=== PATIENT | female | born 1960 | race Caucasian/White ===

== ENCOUNTER 2022-10-31 10:25 | Outpatient (CLI) | payer OTHER, SELFPAY ==
[2022-10-31 14:56] LABS: Chloride* 105 mmol/L (96-114); Sodium* 139 mmol/L (135-149)
[2022-10-31 14:59] LABS: Carbon Dioxide* 29 mmol/L (20-32); Cholesterol* 214 mg/dL (90-199); Creatinine* 0.7 mg/dL (0.5-1.5); Estimated Glomerular Filt Rate 99 ml/min
[2022-10-31 15:00] LABS: Blood Urea Nitrogen* 16 mg/dL (7-30); Calcium* 9.5 mg/dL (8.4-10.6); Glucose* 102 mg/dL (60-115); HDL Cholesterol* 49 mg/dL (>=50); LDL Cholesterol Calculated 134 mg/dL (<100); Triglycerides* 156 mg/dL (40-149)
== END 2022-10-31 10:26 | disposition home or self-care (01) ==
PROVIDERS: PCP Family Medicine; Visit Provider Family Medicine
DX: I10 Essential (primary) hypertension (principal); Z13.0 Encounter for screening for diseases of the blood and blood-forming organs and certain disorders involving the immune mechanism; Z13.6 Encounter for screening for cardiovascular disorders
CPT/HCPCS: 80048; 80061

== ENCOUNTER 2022-12-07 16:52 | Outpatient (CLI) | payer OTHER, SELFPAY | END 2022-12-07 16:53 | disposition home or self-care (01) | LOC: NFLDREF 12-09 00:35 | PROVIDERS: PCP Family Medicine; Referring Provider Family Medicine; Visit Provider Family Medicine | DX: R30.0 Dysuria (principal); N39.0 Urinary tract infection, site not specified | CPT/HCPCS: 87086; 87186 ==

== ENCOUNTER 2023-11-14 12:13 | Outpatient (CLI) | payer OTHER, SELFPAY | END 2023-11-14 12:14 | disposition home or self-care (01) | PROVIDERS: PCP Family Medicine; Visit Provider Family Medicine | DX: I10 Essential (primary) hypertension (principal); Z13.220 Encounter for screening for lipoid disorders | CPT/HCPCS: 80048; 80061 ==

== ENCOUNTER 2024-03-26 09:51 | Outpatient (CLI) | payer OTHER, SELFPAY ==
--- NOTE | 2024-03-26 10:15 | CRLHL7_ITS ---
For Patients: As a result of the Century Cures Act, medical imaging exams and procedure reports are released immediately into your electronic medical record. You may view this report before your referring provider. If you have questions, please contact your health care provider. Indication: Lump Technique: Grayscale ultrasound of the right chest wall performed. Comparison: None Findings: Right mastectomy present. Silicone implant noted. [place] area hyperechoic tissue with incomplete distal shadowing measuring 2.4 x 0.8 x 3.8 cm. No fluid collection. No suspicious mass. Impression: Extracapsular silicone measuring 2.4 x 0.8 x 3.8 cm. Plastic surgery referral recommended. No evidence of malignancy. Dictated by Avila Harding MD @ 03/26/2024 12:13:27 PM (Electronically Signed)
== END 2024-03-26 09:52 | disposition home or self-care (01) ==
LOC: US 09:51
PROVIDERS: PCP Family Medicine; Visit Provider Family Medicine
DX: N63.10 Unspecified lump in the right breast, unspecified quadrant (principal)
CPT/HCPCS: 76604; 76642

== ENCOUNTER 2024-09-06 11:04 | Outpatient (CLI) | payer OTHER, SELFPAY | END 2024-09-06 11:05 | disposition home or self-care (01) | LOC: LKVREF 11:05 | PROVIDERS: PCP Family Medicine; Visit Provider Family Medicine | DX: I10 Essential (primary) hypertension (principal) | CPT/HCPCS: 80048 ==

== ENCOUNTER 2025-05-19 10:15 | Outpatient (CLI) | payer OTHER, SELFPAY | END 2025-05-19 10:16 | disposition home or self-care (01) | LOC: LKVREF 10:16 | PROVIDERS: PCP Family Medicine; Visit Provider Family Medicine | DX: I10 Essential (primary) hypertension (principal) | CPT/HCPCS: 80048 ==